=== PATIENT | male | born 1950 | race Caucasian/White ===

== ENCOUNTER 2022-08-18 09:30 | Outpatient (CLI) | payer MEDICARE, OTHER, SELFPAY ==
[2022-08-18 10:40] LABS: Albumin* 4.4 g/dL (3.3-5.0); Chloride* 107 mmol/L (96-114); Potassium* 4.5 mmol/L (3.6-5.1); Sodium* 140 mmol/L (135-149)
[2022-08-18 10:42] LABS: Creatinine* 0.9 mg/dL (0.5-1.5); Estimated Glomerular Filt Rate 92 ml/min
[2022-08-18 10:43] LABS: Alanine Aminotransferase* 22 U/L (4-50); Alkaline Phosphatase* 65 U/L (40-150); Aspartate Amino Transferase* 30 U/L (12-35); Bilirubin Total* 0.4 mg/dL (0.1-1.5); Blood Urea Nitrogen* 21 mg/dL (7-30); Calcium* 9.3 mg/dL (8.4-10.6); Carbon Dioxide* 25 mmol/L (20-32); Cholesterol* 214 mg/dL (90-199); Glucose* 114 mg/dL (60-115); Total Protein* 6.7 g/dL (6.0-8.3)
[2022-08-18 10:44] LABS: HDL Cholesterol* 40 mg/dL (>=40); LDL Cholesterol Calculated 127 mg/dL (<100); Triglycerides* 235 mg/dL (40-149)
[2022-08-18 11:17] LABS: PSA Diagnostic* < 0.06 ng/mL (0.10-4.00)
== END 2022-08-18 09:31 | disposition home or self-care (01) ==
PROVIDERS: PCP Internal Medicine; Visit Provider Internal Medicine
DX: C61 Malignant neoplasm of prostate (principal); F41.9 Anxiety disorder, unspecified; K21.9 Gastro-esophageal reflux disease without esophagitis; Z13.6 Encounter for screening for cardiovascular disorders
CPT/HCPCS: 80053; 80061; 84153

== ENCOUNTER 2022-09-16 07:09 | Outpatient (CLI) | payer MEDICARE, OTHER, SELFPAY ==
--- OUTSIDE RECORDS SUMMARY | 2022-09-16 07:11 | XMS_ITS | Clinical Summary ---
:1950 Author Organization [facility] Address [place] [address] Care Team Providers Name Role Phone Unknown, Doctor Primary Care Provider Unavailable Jensen Martell MD Unavailable Allergies No known active allergies Medications No known medications Active Problems Problem Noted Date Sensorineural hearing loss (SNHL) of both ears 019 Tinnitus of both ears 06/06/2019 Social History Tobacco Use Types Packs/Day Years Used Date Current Every Day Smoker Cigarettes 0.25 20 Alcohol Use Standard Drinks/Week Comments Yes 10 (1 standard drink = 0.6 oz pure alcoh ol) Sex Assigned at Date Recorded Not on file Obstetrics History Plan of Treatment Health Maintenance Due Date Last Done Comments COVID-19 vaccine series (#1) 1950 Tdap 1963 Depression screening for age 12+ 1964 BMI (ht and wt on same day) for age 18+ 1970 Hepatitis C screening for age 18-79 1970 Tetanus booster 1972 Lipids for age 45-75 1997 Zoster (shingles) series for age 50+ (1 of 2) 2002 Medicare Wellness for age 65+ 2017 Pneumococcal series for age 65+ (1 - PCV) 2017 Colonoscopy through age 75 08/24/2017 08/24/2007 Influenza for age 65+ 06/30/2022 Results Not on filefrom Last 3 Months Insurance Payer Benefit Plan / Subscriber ID Effective Dates Phone Addre ss Type Group MEDICA MR MEDICA PRIME [id number] 2018-Present [address] [address] [employer] [place] [facility] [id number] Care Teams Content Producer Relationship Specialty Start Date End Date Unknown, Doctor PCP - General 08/01/07 Jensen Martell MD 03/04/08
--- NOTE | 2022-09-16 08:41 | W.ANESCHARGE ---
Anesthesia Charges Start Date/Time Anesthesia Start Date: 09/16/22 Anesthesia Start Time: 08:15 Stop Date/Time Anesthesia Stop Date: 09/16/22 Anesthesia Stop Time: 08:38 Summary Emergency: No Extremes of Age: Over 70-CPT 48315
--- NOTE | 2022-09-16 08:48 | W.ANESCHARGE ---
Anesthesia Charges Start Date/Time Anesthesia Start Date: 09/16/22 Anesthesia Start Time: 08:15 Stop Date/Time Anesthesia Stop Date: 09/16/22 Anesthesia Stop Time: 08:38 Summary Emergency: No
== END 2022-09-16 07:10 | disposition home or self-care (01) ==
PROVIDERS: PCP Internal Medicine; Visit Provider Internal Medicine
DX: Z12.11 Encounter for screening for malignant neoplasm of colon (principal); K64.8 Other hemorrhoids; K57.30 Diverticulosis of large intestine without perforation or abscess without bleeding; Z86.010 Personal history of colon polyps
CPT/HCPCS: 45378; 00811; 99100; J2704

== ENCOUNTER 2023-01-20 09:44 | Outpatient (CLI) | payer MEDICARE, OTHER, SELFPAY ==
--- NOTE | 2023-01-20 10:00 | CRLHL7_ITS ---
For Patients: As a result of the Century Cures Act, medical imaging exams and procedure reports are released immediately into your electronic medical record. You may view this report before your referring provider. If you have questions, please contact your health care provider. Indication: Pulmonary nodule Technique: Noncontrast CT chest Please note that all CT scans at this facility use dose modulation, iterative reconstruction, and/or weight-based dosing when appropriate to reduce radiation dose to as low as reasonably achievable. Comparison: 12/11/2021 Findings: Interval clearing of bilateral infiltrates compared to the prior study. The previously noted nodule within the lateral aspect of the right lower lobe is no longer present. Chronic posterior mid changes to the anterior right lung noted with adjacent pleural calcifications. No pleural effusion. Atherosclerotic disease. No fracture. Adrenal glands normal. Calcified gallstone in the gallbladder lumen measuring 1.3 cm. No fracture. Discogenic spurring. Impression: Interval clearing of bilateral infiltrates. Previously noted nodule is no longer present. Chronic scarring in the anterior right lung. Please note that all CT scans at this facility use dose modulation, iterative reconstruction, and/or weight-based dosing when appropriate to reduce radiation dose to as low as reasonably achievable. Dictated by Case Thomas MD @ 01/20/2023 1:06:05 PM (Electronically Signed)
== END 2023-01-20 09:45 | disposition home or self-care (01) ==
LOC: CT 09:47
PROVIDERS: PCP Internal Medicine; Visit Provider Internal Medicine
DX: R91.1 Solitary pulmonary nodule (principal)
CPT/HCPCS: 71250

== ENCOUNTER 2023-02-17 09:49 | Outpatient (CLI) | payer MEDICARE, OTHER, SELFPAY ==
--- NOTE | 2023-02-17 10:15 | CRLHL7_ITS ---
For Patients: As a result of the Century Cures Act, medical imaging exams and procedure reports are released immediately into your electronic medical record. You may view this report before your referring provider. If you have questions, please contact your health care provider. Indication: Left hip pain Procedure : Informed consent was obtained. The site was marked. Time-out was performed. The skin of the left hip was cleansed with ChloraPrep. A sterile drape was placed. 8 cc of 1 percent lidocaine was administered for superficial anesthesia. Subsequently a 22 gauge spinal needle was introduced into the left hip joint under intermittent fluoroscopic guidance. 7 cc 1 percent lidocaine and 2 cc of 40 milligram/cc Depo-Medrol then injected into the left hip joint. The needle was removed and hemostasis achieved with direct pressure. A dressing was placed. The patient tolerated the procedure well without immediate complication. Total fluoroscopy time 11 seconds. Impression: Successful fluoroscopically guided left hip injection with 80 milligrams of Depo-Medrol. Dictated by Case Thomas MD @ 02/17/2023 11:24:53 AM (Electronically Signed)
== END 2023-02-17 09:50 | disposition home or self-care (01) ==
LOC: RAD 09:50
PROVIDERS: PCP Internal Medicine; Visit Provider Orthopaedic Surgery Sports Medicine
DX: M16.12 Unilateral primary osteoarthritis, left hip (principal); M25.552 Pain in left hip
CPT/HCPCS: 20610; 77002; J1030; Q9966

== ENCOUNTER 2023-06-02 07:56 | Outpatient (RCR) | payer MEDICARE, OTHER, SELFPAY ==
--- NOTE | 2023-06-02 08:55 | PT.OPEX ---
initial eval requires signature PT [facility] Eval PT [facility] Outpatient Eval Start: 06/02/23 07:52 Freq: Status: Active Protocol: Document 06/02/23 07:53 RUT (Rec: 06/02/23 08:53 RUT [id number]) E-signed By INDIRA SpiveyT Physical [facility] Outpatient Evaluation Insurance Information Recert Due Date 08/26/23 Insurance Name Medicare B,[employer] Medical Diagnosis L YOSSI Treating Diagnosis L hip pain/ weakness Referring MD alicia langston Subjective Subjective Taiwo comes into clinic today for his pre op visit prior to his YOSSI surgery on . States he has tried the injection that did not work out too well. States he like to be active, golf pickleball skiing hiking, but this has all been limited due to his hip pain this summer. Did have his other hip replaced back in 2019 so understands the progression. Is also having a hard time donning socks an shoes Date of Surgery (If applicable) 06/12/23 Current Work Status Retired Objective Other/Pertinent Objective GAIT: increased Trendelenburg pattern, decreased pace. HIP ROM Flexion: 95 degrees with increased pain and guarding Extension: can reach neutral Internal Rotation: can reach neutral but increased sharp pain with hard feel External Rotation 15 degrees Abduction LLE MMT: WNL on R Hip flexion: L 4/5 Hip abduction: L4- /5 Hip extension: L4 /5 Knee flexion: L5 /5 Knee extension: L4+ /5 Assessment Assessment/Impression Pt is 73 yr old male who presents with concerns of L hip pain due to OA for a pre op visit prior to YOSSI. Patient also has notable objective findings including limited ROM, decreased strength also likely contributing to the problem. Patient is a good candidate for skilled therapy to target deficits described above. Skilled PT intervention is necessary for use of therapeutic exercise manual therapy, neuromuscular re- education, gait training, and therapeutic activity. Functional impairments include difficulty with: walking standing squatting recreational activity . See appropriate sections of PT eval for complete list of goals and POC. D/C plan and criteria is for pt to achieve the goals as listed below or until max rehab potential is met. Pt was agreeable with plan of care and goals established Plan of Care Rehabilitation Potential Good Physical Therapy Goals GOAL Pt will be independent with pre op HEP within 1 visit to allow for independence and continued improvement. - met Coordination/Communication With Referral Source Treatment Plan/Direct Interventions Self-Care/Home Management, Therapeutic Exercises Frequency/Duration 1 visit pre op Patient Will Be Discharged From Therapy Completion of LTG(s), Independent w/HEP Evaluation Billing Untimed Code Treatment Minutes 20 Complexity Low Certification Information Physician Comment/Change : Physician NPI Number #
== END 2023-09-30 23:59 | disposition home or self-care (01) ==
PROVIDERS: PCP Internal Medicine; Visit Provider Orthopaedic Surgery Sports Medicine
DX: M16.12 Unilateral primary osteoarthritis, left hip (principal); Z96.642 Presence of left artificial hip joint; M25.552 Pain in left hip; R53.1 Weakness; Z51.89 Encounter for other specified aftercare
CPT/HCPCS: 97110; 97161; 97535

== ENCOUNTER 2023-06-10 09:39 | Outpatient (CLI) | payer MEDICARE, OTHER, SELFPAY | END 2023-06-10 09:40 | disposition home or self-care (01) | LOC: LAB 09:41 | PROVIDERS: PCP Internal Medicine; Visit Provider Orthopaedic Surgery Sports Medicine | DX: Z01.818 Encounter for other preprocedural examination (principal) | CPT/HCPCS: 36415; 86850; 86900; 86901 ==

== ENCOUNTER 2023-06-12 06:11 | Day surgery (SDC) | payer MEDICARE, OTHER, SELFPAY ==
[2023-06-12] VITALS (47 sets, daily range): BP systolic 81–139; BP diastolic 56–93; PULSE 58–107; RESP 12–20; TEMP 36.2–37.3; O2SAT 83–100; BMI 26.7
[2023-06-12] MEDS: LACTATED RINGERS 1000 ML 1,000 ML 100 ML IV (06:10)
[2023-06-12] MEDS: SODIUM CHLORIDE 0.9 % (FLUSH) 10 ML SYRINGE IVF (07:01)
[2023-06-12] MEDS: OXYCODONE (CR) 10 MG TAB.ER.12H PO (07:01)
[2023-06-12] MEDS: ACETAMINOPHEN 500 MG TABLET 1000 MG PO ×4 (07:01→22:07)
[2023-06-12] MEDS: CELECOXIB 200 MG CAPSULE PO ×2 (07:01→20:17)
[2023-06-12] MEDS: fentaNYL 100 MCG/2 ML inj IVP (07:02)
--- NOTE | 2023-06-12 07:02 | SUR.PREOP ---
TIME?OUT:?07 PT/RN/MDA?VERIFICATION?OF?SURGICAL?SITE left hip,?PROCEDURE nerve blcok,?AND?CONSENT OBTAINED?PRIOR?TO?INVASIVE?PROCEDURE.
[2023-06-12] MEDS: MIDAZOLAM HCL 1 MG/ML inj IVP (07:04)
--- NOTE | 2023-06-12 07:05 | CRLHL7_ITS ---
For Patients: As a result of the Cures Act, medical imaging exams and procedure reports are released immediately into your electronic medical record. You may view this report before your referring provider. If you have questions, please contact your health care provider. Indication: Post op left YOSSI Technique: AP hip centered pelvis and lateral view left hip Findings/Impression: Hardware from a left total hip arthroplasty is in satisfactory position. Bone alignment is normal. No sign of acute fracture. Postop changes are within normal limits. Dictated by Case Thomas MD @ 06/12/2023 10:27:20 AM (Electronically Signed)
--- NOTE | 2023-06-12 07:15 | CRLHL7_ITS ---
For Patients: As a result of the Cures Act, medical imaging exams and procedure reports are released immediately into your electronic medical record. You may view this report before your referring provider. If you have questions, please contact your health care provider. Indication: Hip replacement surgery Technique: AP hip fluoroscopic image. Fluoroscopy time 30.3 seconds. Findings/Impression: Hardware from a left total hip arthroplasty is in satisfactory position. Dictated by Case Thomas MD @ 06/12/2023 9:32:56 AM (Electronically Signed)
[2023-06-12] MEDS: TRANEXAMIC ACID 100 MG/ML INJ 1000 MG IV (07:30)
[2023-06-12] MEDS: CEFAZOLIN 2 GM in 0.9 % SODIUM CHLORIDE Mini-bag 100 ML IVPB ×3 (07:34→20:18)
--- NOTE | 2023-06-12 07:49 | P.NB_ITS ---
Nerve Block Nerve Block Time Seen by Provider: 07:08 Type of block requested by surgeon for post-operative analgesia: MEMO/LFCN Side: left Time out performed: Yes Verification of patient name: Yes Verification of date of : Yes Site marking: site marked Name of person performing procedure: Allan Continuous monitoring Was continuous monitoring of O2 sat, B/P, manager monitoring, recorded every 15 minutes?: Yes Procedure Checklist: sterile prep, needles and gloves Ultrasound guided. Images saved: Yes Medications given in 5ml increments after negative aspiration: Ropivicaine %: 0.5 mL: 30 Needle gauge: 20 Decadron (mg): 10 Precedex (mcg): 25 Patient tolerated procedure well: Yes Additional comments: Needle noted below psoas tendon needle noted adjacent to LFCN Block Charges Block Charge (with Pro Fee): Other Periph Nerve Block Use of Ultrasound Machine for Block: Yes- US Guidance/pain block
--- NOTE | 2023-06-12 07:49 | W.ANESCHARGE ---
Anesthesia Charges Start Date/Time Anesthesia Start Date: 06/12/23 Anesthesia Start Time: 07:15 Stop Date/Time Anesthesia Stop Date: 06/12/23 Anesthesia Stop Time: 09:53 Summary Extremes of Age - Over 70 or under 1: MDA
--- NOTE | 2023-06-12 09:04 | P.ORPRC_ITS ---
Procedure Note Date of procedure: 06/12/23 Procedure: PREOPERATIVE DIAGNOSIS: 1. Left hip osteoarthritis, severe, primary POSTOPERATIVE DIAGNOSIS: 1. Left hip osteoarthritis, severe, primary PROCEDURE: 1. Left total hip arthroplasty-anterior approach 2. [id number] - intraoperative fluoroscopy up to 1 hour. SURGEON: Lc Hilton MD. WIND TURBINE CONTROLS ENGINEER: Solomon Lira Pa-c; JAYDEN Wise - Of note, a skilled butcher assistant was critical for this case to aid in patient positioning, tissue retraction, limb manipulation/positioning, dislocation/relocation, patient safety, and closure. ANESTHESIA: General endotracheal anesthetic EBL: 500 mL IMPLANTS: DePuy J&J uncemented total hip [place] cup size 54, hole eliminator, +4 neutral liner Actis stem, standard offset, size 8 +5 mm ceramic 36 mm head. COMPLICATIONS: None evident INDICATIONS: The patient is a pleasant 73-year-old who has experienced severe left hip pain and difficulty bearing weight. Workup included x-rays which revealed severe osteoarthrosis in the hip. Given the deformity, the dysfunction, and the pain, as well as the failure of nonoperative management, recommendation was made for surgery. FINDINGS: Full-thickness chondral loss with large osteophytes around the acetabulum as well as the femoral head/junction. Moderate effusion upon entering the joint. DESCRIPTION OF PROCEDURE: Following a thorough discussion of risks, benefits, and alternatives consent was obtained and the left hip was marked. The patient was brought to the operating room and placed supine on the operating table. Induction of anesthesia was undertaken. 2 g IV Ancef and 1 g tranexamic acid was administered within 1 hr of incision preoperatively. Proper time-out was performed identifying proper patient, site, procedure. The operative extremity was prepped and draped in the appropriate sterile fashion using ChloraPrep after the patient was positioned on the [place] table with head in neutral alignment and all bony prominences well padded. C-arm fluoroscopic imaging was utilized to confirm proper pelvis rotation and position, and to get true AP films of both the contralateral left, and the affected left hip. This is for comparison. A longitudinal incision was made starting approximately 1 cm distal to the ASIS, and 3-4 cm lateral. The incision was extended distally aiming toward the lateral border the patella. Sharp incision through skin and bovie cautery through the subcutaneous tissue allowed identification of the TFL fascia. This was sharply divided, and the fascia bluntly released from the muscle fibers as we dissected medial. Upon coming to the medial border, we were able to retract the TFL laterally, and penetrated the deeper fascia and identify the crossing circumflex vessels. These were ligated/cauterized. The rectus was elevated from the capsule, and retractors placed laterally and medially along the femoral neck to help with visualization of the capsule. We then performed an inverted T capsulotomy. The capsule was tagged for later repair. Retractors were placed inside the capsule. The femoral neck was visualized after releasing medially down to the lesser trochanter, along the saddle laterally, and up onto the acetabulum. The femoral neck cut was made in line with our preoperative templating. The head was removed in a single piece, and sized. We turned our attention to acetabular preparation. Initially, the labrum was resected from around the perimeter, the pulvinar was excised, allowing us to visualize the false wall. We started the reaming with a 43 mm reamer. This was medialized down to the true wall. We then enlarged our reamers sequentially up to one size less than the selected cup size. We trialed at the same size and found it to have an excellent fit. The selected cup was then opened, inserted, and impacted in line with the goal of 40-45? of abduction, and 20-25? of anteversion. This was confirmed on C-arm fluoroscopic imaging to be in the appropriate/goal position. Once the cup was placed we placed a hole eliminator and a liner consistent with preop planning. Attention was turned to the femoral preparation. The limb was extended, externally rotated, and adducted. The posteromedial capsule was released, as retractors were placed allowing excellent access to the proximal femur. Initially a stretch box tender was followed by canal finder followed by various broaches. We broached sequentially up to size noted above, found it to have excellent rotational control, and trialing various heads and necks, revealed that appropriate neck offset, and the above noted head size provided the greatest stability, and moravian of length, and offset. C-arm fluoroscopic imaging confirmed position of the stem, as well as leg lengths, which were compared with the pre procedure all fluoroscopic images. Trial implants were removed, the real femoral stem inserted, as was the ceramic head. After reducing, the leg was placed through range of motion and stability was confirmed anterior, posterior, and lateral. A 3 min Betadine soak was then performed, and thorough irrigation with normal saline followed. Closure of the capsule was performed with #1 PDS. Bleeding was confirmed to be controlled at this stage, and the TFL fascia was closed with #0 strata fix. Subcutaneous, and subcuticular closure was performed with 2-0 Vicryl and 4-0 Monocryl, respectively. Dressings were applied, and the patient was awoken from anesthesia and transferred the PACU in stable condition. A skilled butcher assistant was critical for this case to aid in patient positioning, tissue retraction, proximal femur exposure, limb manipulation/positioning, dislo cation/relocation, patient safety, and closure. PLAN: 1. Weight bear as tolerated operative extremity. 2. 23 hr perioperative antibiotics. 3. Ice. 4. PT/OT consults for ambulation assistance/mobility education. 5. Social work consult for discharge planning. 6. DVT prophylaxis with at SCDs, Jose Hose, and Xarelto x5 days followed by aspirin for a total of 1 month..
--- NOTE | 2023-06-12 09:47 | PM.IMPN1 ---
Progress Note: A&P Assessment and plan (1) Osteoarthritis of left hip: Problem details: severe. 1. Left total hip arthroplasty-anterior approach ANESTHESIA: General endotracheal anesthetic EBL: 500 mL Status: Chronic Assessment and Plan: pain control; diet; dvt ppx per surgery check hgb and bmp in am (2) Gastroesophageal reflux disease: Problem details: continue pPI Status: Acute (3) Prostate cancer: Status: Acute (4) Insomnia: Problem details: hold leroy Status: Acute Subjective Date Seen: 06/12/23 Interval history: POSTOPERATIVE DIAGNOSIS: 1. Left hip osteoarthritis, severe, primary PROCEDURE: 1. Left total hip arthroplasty-anterior approach ANESTHESIA: General endotracheal anesthetic EBL: 500 mL The patient is HD stable following surgery denies chest pain, sob, nausea, vomiting tolerating diet Exam Narrative: Exam Narrative: Gen: no acute distress HEENT: NCAT EOMI mmm Neck: Supple CV: RRR normal s1 s2 Lungs: CTAB Abd: Soft,nt, nd Neuro: Alert, oriented, CN grossly intact; nonfocal screening?exam Psych: appropriate affect MSK: age appropriate muscle mass Skin; Warm, dry no rash on face Const: Vital Signs, click to edit/add: Vital Signs - 24 hr 06/12/23 06:27 06/12/23 07:00 06/12/23 07:05 Temperature 97.8 F Pulse Rate 64 64 65 Respiratory Rate 16 16 16 Blood Pressure 124/84 126/93 H 119/74 Pulse Oximetry 97 100 100 Oxygen Delivery Me thod Room Air Nasal Cannula Nasal Cannula Oxygen Flow Rate 2 2 06/12/23 07:10 Temperature Pulse Rate 60 Respiratory Rate 16 Blood Pressure 120/72 Pulse Oximetry 100 Oxygen Delivery Me thod Nasal Cannula Oxygen Flow Rate 2
--- NOTE | 2023-06-12 09:57 | P.ANES_ITS ---
Anesthesia Charges Start Date/Time Anesthesia Start Date: 06/12/23 Anesthesia Start Time: 07:15 Stop Date/Time Anesthesia Stop Date: 06/12/23 Anesthesia Stop Time: 09:53 Summary Extremes of Age - Over 70 or under 1: ASSISTANT PROGRAM DIRECTOR
[2023-06-12] MEDS: LACTATED RINGERS 1000 ML 1,000 ML 75 ML IV ×2 (10:18→23:38)
[2023-06-12] MEDS: HYDROmorphone 0.5 mg/0.5 ml inj IVP (10:30)
[2023-06-12] MEDS: OXYCODONE 5 MG TABLET PO ×3 (14:07→20:17)
--- NOTE | 2023-06-12 14:20 | PC.NURSE ---
shift note: pt to floor via bed @ 1030. Pt initially drowsy and pain rated 7/10. pt medicated with 0.5mg diluadid IV with relief. pt rating pain while in bed moving lt l/e 2-3/10. cms intact. PP+ bilat. incision to lt thigh/hip covered with c/d/i drsg. IV patent. pt tolerating regular diet. Plexi pulses and teds in place. ICe to lt hip. No void at this time. vss stable. pt afeb.
[2023-06-12] MEDS: SENNOSIDES 1 TAB TABLET 2 TAB PO (20:17)
[2023-06-12] MEDS: LORazepam 0.5 MG TABLET PO (22:08)
[2023-06-13 04:20] VITALS: BP 118/75; PULSE 97; RESP 18; TEMP 36.8; O2SAT 97
[2023-06-13] MEDS: OXYCODONE 5 MG TABLET PO (06:40)
[2023-06-13] MEDS: OMEPRAZOLE 20 MG CAPSULE DR PO (06:40)
[2023-06-13 07:03] LABS: Hematocrit 33.9 % (37.0-53.0); Hemoglobin* 11.4 gm/dL (13.5-17.5); Immature Granulocytes Abs Auto 0.03 K/uL (0.00-0.30); Immature Granulocytes Pct Auto 0.3 %; Lymphocytes Percent Auto 12.1 % (20-44); Mean Corpuscular HGB Conc 34 gm/dL (32-36); Mean Corpuscular Hemoglobin 31 pg (26-34); Mean Corpuscular Volume 92 fL (80-100); Monocytes Percent Auto 12.6 % (0.0-11.0); Platelet Count* 270 K/uL (140-440); RDW Coefficient of Variation % 12.9 % (11.5-15.5); Red Blood Count 3.69 m/uL (4.30-5.90)
[2023-06-13 07:04] LABS: Slide Review Reflex No
[2023-06-13 07:33] LABS: Potassium* 4.5 mmol/L (3.6-5.1); Sodium* 137 mmol/L (135-149)
[2023-06-13 07:36] LABS: Creatinine* 0.9 mg/dL (0.5-1.5); Est. Creatinine Clearance* 65.55; Estimated Glomerular Filt Rate 91 ml/min
[2023-06-13 07:37] LABS: Blood Urea Nitrogen* 16 mg/dL (7-30)
[2023-06-13] MEDS: SENNOSIDES 1 TAB TABLET 2 TAB PO (08:48)
[2023-06-13] MEDS: ACETAMINOPHEN 500 MG TABLET 1000 MG PO (08:48)
[2023-06-13] MEDS: CELECOXIB 200 MG CAPSULE PO (08:49)
[2023-06-13] MEDS: RIVAROXABAN 10 MG TABLET PO (08:49)
[2023-06-13 08:52] VITALS: BP 138/83; PULSE 96; RESP 16; O2SAT 96
--- NOTE | 2023-06-13 09:38 | P.ORPN_ITS ---
Subjective Subjective Date Seen: 06/13/23 Principal diagnosis: Status postop day 1, left total hip arthroplasty - anterior approach Interval history: Patient reports doing well. No acute events over night. Pain managed with scheduled and PRN medications, ice. DVT prophylaxis: Rivaroxaban, bilateral knee high Jose stockings, SCDs, walking. Denies fevers, chills, aches, N/V, CP, SOB/DE LA O, or lightheadedness. Reports that his heart rate has been higher than typical. Denies any palpitations, shortness of breath, or chest pain. Ortho Exam Narrative Exam Narrative: -Patient appears comfortable in recliner; no apparent acute distress -Alert and oriented times 3 -Operative hip swollen; soft tissues supple; no obvious erythema. Ecchymosis minimal. Warmth appropriate -Surgical dressing clean, dry, intact; no obvious drainage, no erythematous streaking peripheral to the bandage -Bilateral calves soft and supple; no significant swelling, edema, tenderness, e rythema, discoloration, warmth, or palpable cords -2+ DP/PT pulses, intact dermatomes and myotomes distally (5/5 strength). No numbness about the lateral femoral cutaneous nerve distribution. Const Vital Signs, click to edit/add: Vital Signs - 24 hr 06/12/23 09:50 06/12/23 09:51 06/12/23 09:52 Temperature 97.2 F L Pulse Rate 70 69 68 Pulse Rate [Pulse Oximeter] Respiratory Rate 12 Blood Pressure 110/70 Blood Pressure [Left Arm] Blood Pressure [Right Arm] Pulse Oximetry 95 94 94 Oxygen Delivery Method Oxygen Flow Rate 06/12/23 09:53 06/12/23 09:54 06/12/23 09:55 Temperature Pulse Rate 69 70 67 Pulse Rate [Pulse Oximeter] Respiratory Rate Blood Pressure Blood Pressure [Left Arm] Blood Pressure [Right Arm] Pulse Oximetry 91 88 88 Oxygen Delivery Method Oxygen Flow Rate 06/12/23 09:56 06/12/23 09:57 06/12/23 09:59 Temperature Pulse Rate 68 63 58 L Pulse Rate [Pulse Oximeter] Respiratory Rate Blood Pressure 81/63 L Blood Pressure [Left Arm] Blood Pressure [Right Arm] Pulse Oximetry 93 83 L 96 Oxygen Delivery Method Blow By Oxygen Flow Rate 06/12/23 10:00 06/12/23 10:01 06/12/23 10:02 Temperature Pulse Rate 63 60 59 L Pulse Rate [Pulse Oximeter] Respiratory Rate Blood Pressure 111/64 Blood Pressure [Left Arm] Blood Pressure [Right Arm] Pulse Oximetry 98 100 100 Oxygen Delivery Method Oxygen Flow Rate 06/12/23 10:03 06/12/23 10:04 06/12/23 10:05 Temperature Pulse Rate 58 L 59 L 60 Pulse Rate [Pulse Oximeter] Respiratory Rate Blood Pressure Blood Pressure [Left Arm] Blood Pressure [Right Arm] Pulse Oximetry 99 99 100 Oxygen Delivery Method Blow By Oxygen Flow Rate 2 06/12/23 10:06 06/12/23 10:07 06/12/23 10:08 Temperature Pulse Rate 65 62 60 Pulse Rate [Pulse Oximeter] Respiratory Rate Blood Pressure 113/56 L Blood Pressure [Left Arm] Blood Pressure [Right Arm] Pulse Oximetry 100 100 100 Oxygen Delivery Method Blow By Oxygen Flow Rate 6 06/12/23 10:09 06/12/23 10:09 06/12/23 10:10 Temperature Pulse Rate 58 L 61 63 Pulse Rate [Pulse Oximeter] Respiratory Rate 14 Blood Pressure 122/70 Blood Pressure [Left Arm] Blood Pressure [Right Arm] Pulse Oximetry 100 100 100 Oxygen Delivery Method Blow By Oxygen Flow Rate 2 06/12/23 10:11 06/12/23 10:12 06/12/23 10:13 Temperature Pulse Rate 58 L 58 L 60 Pulse Rate [Pulse Oximeter] Respiratory Rate Blood Pressure 122/70 Blood Pressure [Left Arm] Blood Pressure [Right Arm] Pulse Oximetry 100 100 98 Oxygen Delivery Method Oxygen Flow Rate 06/12/23 10:14 06/12/23 10:15 06/12/23 10:16 Temperature Pulse Rate 60 60 63 Pulse Rate [Pulse Oximeter] Respiratory Rate Blood Pressure Blood Pressure [Left Arm] Blood Pressure [Right Arm] Pulse Oximetry 96 96 95 Oxygen Delivery Method Oxygen Flow Rate 06/12/23 10:17 06/12/23 10:18 06/12/23 10:19 Temperature Pulse Rate 64 64 65 Pulse Rate [Pulse Oximeter] Respiratory Rate Blood Pressure 124/73 Blood Pressure [Left Arm] Blood Pressure [Right Arm] Pulse Oximetry 97 95 99 Oxygen Delivery Method Room Air Oxygen Flow Rate 06/12/23 10:21 06/12/23 10:30 06/12/23 10:30 Temperature 97.4 F L 97.4 F L Pulse Rate 63 62 Pulse Rate [Pulse Oximeter] 62 Respiratory Rate 12 16 16 Blood Pressure 122/66 Blood Pressure [Left Arm] 121/67 Blood Pressure [Right Arm] 121/67 Pulse Oximetry 99 98 Oxygen Delivery Method Room Air Room Air Room Air Oxygen Flow Rate 06/12/23 10:30 06/12/23 10:40 06/12/23 11:00 Temperature 97.4 F L 97.6 F 97.6 F Pulse Rate Pulse Rate [Pulse Oximeter] 62 68 68 Respiratory Rate 16 16 16 Blood Pressure Blood Pressure [Left Arm] 121/67 137/73 122/73 Blood Pressure [Right Arm] 121/67 121/67 Pulse Oximetry 98 98 95 Oxygen Delivery Method Room Air Room Air Room Air Oxygen Flow Rate 06/12/23 11:15 06/12/23 11:30 06/12/23 12:00 Temperature 97.6 F 98.2 F 98.2 F Pulse Rate Pulse Rate [Pulse Oximeter] 69 74 85 Respiratory Rate 16 16 18 Blood Pressure Blood Pressure [Left Arm] 121/73 117/76 139/74 Blood Pressure [Right Arm] Pulse Oximetry 93 95 95 Oxygen Delivery Method Room Air Room Air Room Air Oxygen Flow Rate 06/12/23 12:30 06/12/23 13:30 06/12/23 14:30 Temperature 98.2 F 98.2 F 98.2 F Pulse Rate Pulse Rate [Pulse Oximeter] 81 81 84 Respiratory Rate 18 18 18 Blood Pressure Blood Pressure [Left Arm] 125/77 124/77 118/78 Blood Pressure [Right Arm] Pulse Oximetry 96 98 99 Oxygen Delivery Method Room Air Room Air Room Air Oxygen Flow Rate 3 06/12/23 15:00 06/12/23 15:30 06/12/23 20:15 Temperature 98.2 F 98.4 F 98.9 F Pulse Rate Pulse Rate [Pulse Oximeter] 84 107 H 103 H Respiratory Rate 18 18 20 Blood Pressure Blood Pressure [Left Arm] 118/78 124/74 133/80 Blood Pressure [Right Arm] Pulse Oximetry 99 96 96 Oxygen Delivery Method Room Air Room Air Room Air Oxygen Flow Rate 06/12/23 20:15 06/12/23 22:15 06/13/23 04:20 Temperature 99.2 F 98.2 F Pulse Rate Pulse Rate [Pulse Oximeter] 103 H 94 97 Respiratory Rate 20 20 18 Blood Pressure Blood Pressure [Left Arm] 135/86 118/75 Blood Pressure [Right Arm] Pulse Oximetry 97 97 Oxygen Delivery Method Room Air Room Air Oxygen Flow Rate 06/13/23 08:52 Temperature Pulse Rate Pulse Rate [Pulse Oximeter] 96 Respiratory Rate 16 Blood Pressure Blood Pressure [Left Arm] 138/83 Blood Pressure [Right Arm] Pulse Oximetry 96 Oxygen Delivery Method Room Air Oxygen Flow Rate Assessment and Plan Assessment and plan (1) Status post total hip replacement, left: Problem details: 06/12/2023 Status: Acute (2) Osteoarthritis of left hip: Status: Chronic (3) Gastroesophageal reflux disease: Problem details: continue pPI Status: Acute (4) Prostate cancer: Status: Acute (5) Insomnia: Problem details: hold lunesta Status: Acute (6) Acute blood loss anemia: Problem details: 11.4 hgb; 500cc intraoperative blood loss Status: Acute Plan - Complete 23 hour perioperative antibiotics. - PT/OT consult for education and assistance. - Social work consult for discharge planning - Prescribed analgesics as needed - DVT prophylaxis: Rivaroxaban, bilateral knee high Jose Hose stockings and SCDs - I imagine the elevated heart rate noted last evening was more due to pain. He is asymptomatic at this time. Knows to call if experiencing other symptoms of palpitations, or short of breath/CP - Anticipation is for discharge to home with spouse 06/13/2023 if the patient remains medically stable, pain is controlled, and they are safe with mobilization.
--- NOTE | 2023-06-13 11:18 | PC.NURSE ---
Discharge-- Patient went home with his @ 1114 all discharge instructions were reviewed and given to the patient and his . All prescriptions sent to [facility] in [facility]. PT is going to be completed outpatient at the Ortho clinic.
== END 2023-06-13 11:15 | disposition home or self-care (01) ==
LOC: OR 06:13 → MEDSURG 06:36
PROVIDERS: PCP Internal Medicine; Visit Provider Orthopaedic Surgery Sports Medicine
PROC: (CPT 27130; principal; 2023-06-12 07:15)
DX: M16.12 Unilateral primary osteoarthritis, left hip (principal); G89.18 Other acute postprocedural pain; D62 Acute posthemorrhagic anemia; K21.9 Gastro-esophageal reflux disease without esophagitis; G47.00 Insomnia, unspecified; C61 Malignant neoplasm of prostate
CPT/HCPCS: 27130; 01214; 36415; 64450; 73501; 76000; 76942; 82565; 84132; 84295; 84520; 85025; 97110; 97116; 97161; 97165; 97530; 97535; 99100; A9270; C1776; J0330; J0690; J1100; J1170; J2250; J2405; J2704; J2795; J3010; J7120

== ENCOUNTER 2023-06-14 01:28 | Outpatient (CLI) | payer MEDICARE, OTHER, SELFPAY | END 2023-06-14 01:29 | disposition home or self-care (01) | LOC: AMB 06-15 11:50 | PROVIDERS: PCP Internal Medicine; Visit Provider Family Medicine | DX: I10 Essential (primary) hypertension (principal) | CPT/HCPCS: A0998 ==

== ENCOUNTER 2023-11-13 12:38 | Outpatient (CLI) | payer MEDICARE, BC, SELFPAY ==
--- OUTSIDE RECORDS SUMMARY | 2023-11-13 12:44 | XMS_ITS | Clinical Summary ---
Author Name Unknown Organization [facility] Address [place], [place] [address] Care Team Providers Care Credit Administration Officer Name Role Phone Unknown, Doctor Primary Care Provider Jensen Ernandez MD Unavailable [phone] Allergies No known active allergies Medications No known medications Active Problems Problem Noted Date Diagnosed Date Sensorineural hearing loss (SNHL) of both ears 0 06/06/2019 Tinnitus of both ears 06/06/2019 Social History Tobacco Use Types Packs/Day Years Used Date Smoking Tobacco: Every Day Cigarettes 0.3 20 Alcohol Use Standard Drinks/Week Comments Yes 10 (1 standard drink = 0.6 oz pu re alcohol) Sex and Gender Information Value Date Recorded Sex Assigned at Not on file Gender Identity Not on file Sexual Orientation Not on file Obstetrics History Plan of Treatment Health Maintenance Due Date Last Done Comments COVID-19 vaccine series (#1) 1952 Tdap 1963 Depression screening for age 12+ 1964 BMI (ht and wt on same day) for age 18+ 1970 Hepatitis C screening for age 18-79 1970 Tetanus booster 1972 Lipids for age 45-75 1997 Zoster (shingles) series for age 50+ (1 of 2) 05/29/20 02 Medicare Wellness for age 65+ 2017 Pneumococcal series for age 65+ (1 of 1 - PCV) 017 Colonoscopy through age 75 08/24/2017 08/24/2007 Influenza for age 65+ 06/30/2023 Care Teams Credit Administration Officer Relationship Specialty Start Date End Date Unknown, Doctor PCP - General 08/01/07 Jensen Martell MD 03/04/08
--- NOTE | 2023-11-13 13:00 | CRLHL7_ITS ---
For Patients: As a result of the Century Cures Act, medical imaging exams and procedure reports are released immediately into your electronic medical record. You may view this report before your referring provider. If you have questions, please contact your health care provider. EXAM: Ultrasound of the abdominal aorta. CLINICAL HISTORY: Abdominal aortic ectasia. COMPARISON: 11/26/2020. TECHNIQUE: The abdominal aorta and iliac arteries were examined with de leon-scale ultrasound, color flow and Doppler spectral analysis. Bypass grafts and stents may be evaluated per exam specific protocol. Vessel size, peak systolic velocity (PSV) and velocity ratios, if applicable, were obtained and documented at sites per exam specific protocol. FINDINGS: MEASUREMENTS (AP by Width) Proximal aorta: 2.2 x 2.9 cm Mid aorta: 1.9 x 2.1 cm Distal aorta: 1.7 x 2.0 cm Right common iliac artery: 1.1 x 1.3 cm Left common iliac artery: 1.1 x 1.3 cm There is ectasia of the proximal abdominal aorta which measures up to 2.9 cm, grossly stable to prior examination when allowing for differences in acquisition and technique. 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 Dictated by Suresh Liu MD @ 11/14/2023 12:28:05 PM (Electronically Signed)
== END 2023-11-13 12:39 | disposition home or self-care (01) ==
PROVIDERS: PCP Internal Medicine; Visit Provider Internal Medicine
DX: I77.819 Aortic ectasia, unspecified site (principal); I77.811 Abdominal aortic ectasia
CPT/HCPCS: 76775

== ENCOUNTER 2024-03-20 09:34 | Outpatient (CLI) | payer MEDICARE, BC, SELFPAY ==
--- OUTSIDE RECORDS SUMMARY | 2024-04-09 09:59 | XMS_ITS | Clinical Summary ---
Author Organization [facility] Address [place], [place] [address] Care Team Providers Care Advertising Traffic Manager Name Role Phone Unknown, Doctor Primary Care Provider Jensen Ernandez MD Unavailable [phone] Allergies No known active allergies Medications No [...] Health Maintenance Due Date Last Done Comments Tdap 1963 Depression screening for age 12+ [...] 017 Colonoscopy through age 75 08/24/2017 08/24/2007 COVID-19 vaccine series (1 - 2022- season) 3 Influenza for age 65+ 06/30/2024 Care Teams Advertising Traffic Manager Relationship Specialty Start Date End Date Unknown, Doctor PCP - General 08/01/07 Jensen Martell MD 03/04/08
== END 2024-03-20 09:35 | disposition home or self-care (01) ==
LOC: NFLDREF 04-09 09:57
PROVIDERS: PCP Internal Medicine; Referring Provider Internal Medicine; Visit Provider Internal Medicine
DX: C61 Malignant neoplasm of prostate (principal); Z13.9 Encounter for screening, unspecified
CPT/HCPCS: G0103

== ENCOUNTER 2024-08-14 08:37 | Outpatient (CLI) | payer MEDICARE, BC, SELFPAY ==
--- OUTSIDE RECORDS SUMMARY | 2024-08-14 15:00 | XMS_ITS | Clinical Summary ---
Author Organization [facility] Address [place], [place] [address] Care Team Providers Care Aircraft Structural Repair Mechanic Name Role Phone Unknown, Doctor Primary Care Provider Jensen Ernandez MD Unavailable [phone] Allergies No known active allergies Medications No [...] age 75 08/24/2017 08/24/2007 COVID-19 vaccine series ( - 2023- season) 4 Influenza for age 65+ 06/30/2024 Care Teams Aircraft Structural Repair Mechanic Relationship Specialty Start Date End Date Unknown, Doctor PCP - General 08/01/07 Jensen Martell MD 03/04/08
== END 2024-08-14 08:38 | disposition home or self-care (01) ==
LOC: NFLDREF 14:58
PROVIDERS: PCP Internal Medicine; Referring Provider Internal Medicine; Visit Provider Internal Medicine
DX: E78.5 Hyperlipidemia, unspecified (principal); G47.00 Insomnia, unspecified; K21.9 Gastro-esophageal reflux disease without esophagitis; Z13.9 Encounter for screening, unspecified; C61 Malignant neoplasm of prostate; K80.20 Calculus of gallbladder without cholecystitis without obstruction; I77.819 Aortic ectasia, unspecified site; F41.1 Generalized anxiety disorder; Z12.5 Encounter for screening for malignant neoplasm of prostate
CPT/HCPCS: 80053; 80061; G0103

== ENCOUNTER 2024-08-16 07:08 | Outpatient (CLI) | payer MEDICARE, BC, SELFPAY ==
--- OUTSIDE RECORDS SUMMARY | 2024-08-16 07:10 | XMS_ITS | Clinical Summary ---
Author Organization [facility] Address [place], [place] [address] Care Team Providers Care Manager Staffing Name Role Phone Unknown, Doctor Primary Care Provider Jensen Ernandez MD Unavailable [phone] Allergies No known active allergies Medications No [...] Influenza for age 65+ 06/30/2024 Care Teams Manager Staffing Relationship Specialty Start Date End Date Unknown, Doctor PCP - General 08/01/07 Jensen Martell MD 03/04/08
--- NOTE | 2024-08-16 07:15 | CRLHL7_ITS ---
For Patients: As a result of the Century Cures Act, medical imaging exams and procedure reports are released immediately into your electronic medical record. You may view this report before your referring provider. If you have questions, please contact your health care provider. INDICATION: Right upper quadrant pain. Cholelithiasis on prior CT. COMPARISON: 08/10/2010 CT abdomen/pelvis TECHNIQUE: Sonographic evaluation of the right upper abdominal quadrant was performed utilizing de leon-scale and color Doppler imaging techniques. FINDINGS: Proximal abdominal aorta measures up to 2.6 centimeters in diameter. Visualized portion of the IVC is patent. Nodular hepatic contour. The liver measures 13.5 centimeters. Hepatopetal flow in the main portal vein. Visualized portions of the pancreas is unremarkable. There is cholelithiasis. No pericholecystic fluid. Negative sonographic Wetzel`s sign. No gallbladder wall thickening. Common bile duct measures 3 millimeters in diameter. Right kidney measures 10.9 centimeters. No right-sided hydronephrosis. IMPRESSION: 1. Cholelithiasis. No additional sonographic findings to suggest cholecystitis. 2. Nodular hepatic contour concerning for cirrhosis. Dictated by Refugio Briscoe MD @ 08/16/2024 12:32:53 PM (Electronically Signed)
== END 2024-08-16 07:09 | disposition home or self-care (01) ==
PROVIDERS: PCP Internal Medicine; Visit Provider Internal Medicine
DX: R10.11 Right upper quadrant pain (principal); K80.20 Calculus of gallbladder without cholecystitis without obstruction
CPT/HCPCS: 76705

== ENCOUNTER 2024-09-12 09:52 | Outpatient (CLI) | payer MEDICARE, BC, SELFPAY ==
--- OUTSIDE RECORDS SUMMARY | 2024-09-12 09:57 | XMS_ITS | Clinical Summary ---
Author Organization [facility] Address [place], [place] [address] Care Team Providers Care Oracle Agile Plm Consultant Name Role Phone Unknown, Doctor Primary Care Provider Jensen Ernandez MD Unavailable Allergies No known active allergies [...] Influenza for age 65+ 06/30/2024 Care Teams Oracle Agile Plm Consultant Relationship Specialty Start Date End Date Unknown, Doctor PCP - General 08/01/07 Jensen Martell MD 03/04/08
--- NOTE | 2024-09-12 10:15 | CRLHL7_ITS ---
For Patients: As a result of the Century Cures Act, medical imaging exams and procedure reports are released immediately into your electronic medical record. You may view this report before your referring provider. If you have questions, please contact your health care provider. Indication: Cholelithiasis and abdominal pain Technique: Nuclear medicine hepatobiliary scan with gallbladder ejection fraction after the intravenous administration of 5.2 millicuries technetium 99 M Mebrofenin and 1.6 micrograms of CCK. Comparison: Right upper quadrant ultrasound 08/16/2024 Findings: Normal hepatic extraction and excretion of the radiopharmaceutical with prompt appearance of the common bile duct followed by the gallbladder and small bowel. There is no enterogastric reflux. Visually significantly decreased gallbladder contraction is identified. Calculated gallbladder ejection fraction is 12 percent. Impression: Cholelithiasis with gallbladder dysfunction. Recommend general surgical evaluation. Dictated by Matt Urbina MD @ 09/12/2024 12:44:07 PM (Electronically Signed)
== END 2024-09-12 09:53 | disposition home or self-care (01) ==
LOC: NM 09:53
PROVIDERS: PCP Internal Medicine; Visit Provider Internal Medicine
DX: K80.20 Calculus of gallbladder without cholecystitis without obstruction (principal); R10.9 Unspecified abdominal pain
CPT/HCPCS: 78227; A9537; J2805

== ENCOUNTER 2024-11-14 06:08 | Day surgery (SDC) | payer MEDICARE, BC, SELFPAY ==
[2024-11-14] VITALS (13 sets, daily range): BP systolic 111–131; BP diastolic 60–90; PULSE 46–60; RESP 14–16; TEMP 36.7–36.8; O2SAT 93–98; BMI 26.7
--- OUTSIDE RECORDS SUMMARY | 2024-11-14 06:15 | XMS_ITS | Continuity of Care Document ---
Author Name [facility] Address Unknown Organization Unknown Address Unknown Procedures FILTER APPLIED:Only known Procedures with Onset Date within the last 5 years Procedure Date Procedure Provider Additional Inform ation Status US EXAM ABDO BACK WALL HUSAIN (52296) Completed SELF CARE MNGMENT TRAINING (25947) Completed THERAPEUTIC EXERCISES (73981) Completed PT EVAL LOW COMPLEX 20 MIN (07682) Completed Encounters FILTER APPLIED:Only known Encounters with Admission Date within the last 5 years Encounter Location Admission Discharge Billing Code [facility] Out[facility] Jim Martell
--- OUTSIDE RECORDS SUMMARY | 2024-11-14 06:15 | XMS_ITS | Clinical Summary ---
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 Gender Identity Not on file Sexual Orientation Not on file Obstetrics History Plan of Treatment Health Maintenance Due Date Last Done Comments Tdap 1963 Depression screening for age 12+ 1964 BMI (ht and wt on same day) for age 18+ 1970 Hepatitis C screening for age 18-79 1970 Tetanus booster 1972 Lipids for age 45-75 1997 Pneumococcal series for age 50+ (1 of 1 - PCV) 002 Zoster (shingles) series for age 50+ (1 of 2) 05/29/20 02 Medicare Wellness for age 65+ 2017 Colonoscopy through age 75 08/24/2017 08/24/2007 COVID-19 vaccine series ( - 2023- season) Influenza for age 65+ 06/30/2024 RSV vaccine for adults or pr egnancy (1 - 1-dose 75+ series) 2027 Insurance [email or web address] MR PB ONLY Care Teams Grass Farm Laborer Relationship Specialty Start Date End Date Unknown, Doctor PCP - General 08/01/07 Jensen Martell MD 03/04/08
[2024-11-14] MEDS: SODIUM CHLORIDE 0.9 % (FLUSH) 10 ML SYRINGE IVF (06:55)
[2024-11-14] MEDS: 0.9 % SODIUM CHLORIDE 500 ML 500 ML 100 ML IV (06:55)
--- NOTE | 2024-11-14 07:34 | W.PM.H&PU ---
History & Physical Update History & Physical Update H&P Reviewed and patient assessed: No changes noted
[2024-11-14] MEDS: CEFAZOLIN 2 GM INJ IVP (07:43)
[2024-11-14] MEDS: BUPIVACAINE 0.5% 30 ML INJECTION (07:55)
--- NOTE | 2024-11-14 08:50 | P.GSOP_ITS ---
Operative Note Date of procedure: 11/14/24 Pre-op diagnosis: Chronic cholecystitis Post-op diagnosis: Same Type of Procedure: Laparoscopic cholecystectomy Indications: Patient is a 74-year-old male who presented to clinic with persistent right upper quadrant abdominal pain. On workup he had decreased ejection fraction on his HIDA scan and large stones found on abdominal ultrasound. Risks and benefits of operative intervention were discussed at length with the patient. Risks included but was not limited to: Bleeding, infection, risk of damage to surrounding structures, possible need for additional procedures, [possible need to convert to an open operation] and postoperative complications such as pneumonia, pulmonary emboli or WI. All questions and concerns were addressed with the patient agreeing to proceed. Procedure Description: After discussing the risks and benefits of the procedure, the patient signed informed consent.? The operative site was marked and the patient was brought to the operating room and placed on the operating table in supine position.? Care was taken to pad the patient's pressure points.?? The patient was then intubated by anesthesia.?? The operative site was then prepped and draped in the usual sterile fashion.? A time-out was then performed. Entrance to the abdomen was gained via a 5 mm Visiport in the left upper quadrant. The abdomen was insufflated and briefly surveyed for signs of injury. There was none. 11 mm umbilical port was placed as well as 2 working ports along the right costal margin. Patient was then placed in reverse Trendelenburg position with the right side up. Omentum was adherent to the edge of the liver. This was carefully taken down with cautery. A small tear in the liver capsule occurred, bleeding was minimal and controlled with cautery. The gallbladder fundus was then grasped and retracted cephalad. A small amount of dissection was needed to free omental adhesions from the gallbladder. The infundibulum was grasped. A combination of hook cautery and blunt dissection was used to carefully dissect out the cystic duct and artery until they could clearly be seen entering the gallbladder without any intervening structures. The gallbladder was dissected off the cystic plate to achieve the critical view. Once this was achieved the cystic duct and artery were each clipped with 2 clips proximally and 1 clip distally and transected with the scissors. The gallbladder was then taken off of the liver bed. And removed from the abdomen using an Endo- Catch bag. The gallbladder bed was surveyed for hemostasis. A small amount of bile which had spilled was suctioned from the abdomen. The ports were then re moved under direct vision. The umbilical port fascia was closed with 0 Vicryl. The skin was closed with absorbable subcuticular suture. Instrument sponge and needle counts were correct at the end of the case. The patient was then woken and transferred to the PACU in stable condition. Findings: Chronic cholecystitis, cholelithiasis Anesthesia: GETA Surgeon: Ana Ortiz MD Estimated blood loss (mL): 5 Specimen: Gallbladder Condition: stable Disposition: PACU
--- NOTE | 2024-11-14 09:01 | P.ANES_ITS ---
Anesthesia Charges Start Date/Time Anesthesia Start Date: 11/14/24 Anesthesia Start Time: 07:30 Stop Date/Time Anesthesia Stop Date: 11/14/24 Anesthesia Stop Time: 08:59 Summary Extremes of Age - Over 70 or under 1: HYPERBARIC WELDER DIVER Coding CPT Codes CPT Codes: ANESTH SURG UPPER ABDOMEN - 03682 ([id number]) P2 - PATIENT W/MILD SYST DISEASE, QK - FOOD AND DRINK FACTORY WORKERS 2-4 CNCRNT ANES PROC, QX - HYPERBARIC WELDER DIVER SVC W/ MD MED DIRECTION Additional Codes: Summary - Extremes of Age - Over 70 or under 1: HYPERBARIC WELDER DIVER ([id number])
--- NOTE | 2024-11-14 09:01 | W.ANESCHARGE ---
Anesthesia Charges Start Date/Time Anesthesia Start Date: 11/14/24 Anesthesia Start Time: 07:30 Stop Date/Time Anesthesia Stop Date: 11/14/24 Anesthesia Stop Time: 08:59 Summary Extremes of Age - Over 70 or under 1: GAS PLUMBER Coding CPT Codes CPT Codes: ANESTH SURG UPPER ABDOMEN - 55719 ([id number]) P2 - PATIENT W/MILD SYST DISEASE, QK - GEOLOGICAL MANAGER 2-4 CNCRNT ANES PROC, QX - GAS PLUMBER SVC W/ MD MED DIRECTION Additional Codes: Summary - Extremes of Age - Over 70 or under 1: GAS PLUMBER ([id number])
[2024-11-14] MEDS: fentaNYL 100 MCG/2 ML inj 50 MCG IVP ×2 (09:05→09:15)
--- NOTE | 2024-11-14 09:29 | W.ANESCHARGE ---
Anesthesia Charges Start Date/Time Anesthesia Start Date: 11/14/24 Anesthesia Start Time: 07:30 Stop Date/Time Anesthesia Stop Date: 11/14/24 Anesthesia Stop Time: 08:59 Summary Extremes of Age - Over 70 or under 1: MDA Coding CPT Codes CPT Codes: ANESTH SURG UPPER ABDOMEN - 89878 ([id number]) QK - NONPROFIT DIRECTOR 2-4 CNCRNT ANES PROC, QX - COMPUTER APPLICATION DEVELOPER SVC W/ MD MED DIRECTION, P2 - PATIENT W/MILD SYST DISEASE Additional Codes: Summary - Extremes of Age - Over 70 or under 1: MDA ([id number])
[2024-11-14] MEDS: ACETAMINOPHEN 325 MG TABLET 650 MG PO (10:20)
--- NOTE | 2024-11-14 10:44 | SUR.PHASEII ---
pt doing well. tolerated crackers and water. reviewed d/c instructions with pt and . all questions answered.
== END 2024-11-14 10:58 | disposition home or self-care (01) ==
PROVIDERS: PCP Internal Medicine; Visit Provider Surgery
PROC: 0FT44ZZ Resection of Gallbladder, Percutaneous Endoscopic Approach (ICD-10-PCS; CPT 47562; principal; 2024-11-14 07:30)
DX: K80.10 Calculus of gallbladder with chronic cholecystitis without obstruction (principal)
CPT/HCPCS: 47562; 00790; 88304; 99100; A9270; J0665; J0690; J1100; J1171; J2405; J2704; J2710; J3010; J7030; J7120

== ENCOUNTER 2025-10-08 08:25 | Outpatient (CLI) | payer MEDICARE, BC, SELFPAY | END 2025-10-08 08:26 | disposition home or self-care (01) | LOC: NFLDREF 10-14 14:50 | PROVIDERS: PCP Internal Medicine; Referring Provider Internal Medicine; Visit Provider Internal Medicine | DX: E78.5 Hyperlipidemia, unspecified (principal); Z13.9 Encounter for screening, unspecified; C61 Malignant neoplasm of prostate | CPT/HCPCS: 80053; 80061; G0103 ==